=== PATIENT | female | born 1995 | race Caucasian/White ===

== ENCOUNTER 2020-11-01 12:43 | Emergency (ER) | payer SELFPAY ==
[~2020-11-01] VITALS: Ht 152.4 cm; Wt 57.0 kg
[2020-11-01] MEDS ORDERED: MAGNESIUM/ALUMINUM HYDROXIDE/SIMETHICONE 30ML UDC PO STA (13:03)
[2020-11-01] MEDS ORDERED: ONDANSETRON HCL 4MG/2ML INJ IV STA (13:03)
[2020-11-01] MEDS ORDERED: FAMOTIDINE 20MG/2ML VIAL IV ONE (13:15)
[2020-11-01 13:26] LABS: BASOPHILS % 0.4 % (0.0-2.0); EOSINOPHILS % 0.3 % (0.0-5.0); HEMATOCRIT. 37.8 % (36.0-48.0); HEMOGLOBIN. 12.8 g/dL (12.0-16.0); MEAN CORPUSCULAR HEMOGLOBIN 29.7 pg (28.0-32.0); MEAN CORPUSCULAR VOLUME 87.4 fL (81.0-99.0); MEAN PLATELET VOLUME 10.6 fl (7.4-10.4); NEUTROPHILS % 65.3 % (40.0-76.0); PLATELET 215 x1000/uL (130-400); RED BLOOD CELL COUNT 4.32 mill/uL (4.2-5.4); RED CELL DISTRIBUTION WIDTH 15.1 % (11.6-14.6)
[2020-11-01 13:32] LABS: CHLORIDE 109 mEq/L (98-107)
[2020-11-01 13:57] LABS: CLARITY URINE CLEAR (CLEAR); COLOR URINE DARK YELLOW (YELLOW); KETONES URINE TRACE (NEGATIVE); LEUKOCYTE ESTERASE URINE NEGATIVE (NEGATIVE); NITRITE URINE NEGATIVE (NEGATIVE); OCCULT BLOOD URINE NEGATIVE (NEGATIVE); PROTEIN URINE TRACE (NEGATIVE); SPECIFIC GRAVITY URINE 1.035 (1.005-1.030); UROBILINOGEN URINE 0.2 E.U./dL (0.2-1.0)
[2020-11-01] MEDS ORDERED: FAMO20TA8 MT (14:54)
[2020-11-01] MEDS ORDERED: ONDA4TAB5 MT (14:54)
[2020-11-01] MEDS ORDERED: SIME125C MT (14:54)
[2020-11-01 15:54] VITALS: BP 109/70
== END 2020-11-01 16:00 | disposition home or self-care (01) ==
LOC: ER 13:19
DX: R10.9 Unspecified abdominal pain (principal); R11.2 Nausea with vomiting, unspecified; Z88.8 Allergy status to other drugs, medicaments and biological substances; Z98.82 Breast implant status
CPT/HCPCS: 36415; 76705; 80053; 81003; 81025; 83690; 85025; 93005; 96374; 96375; 99285; J2405; J3490

== ENCOUNTER 2021-01-26 22:08 | Emergency (ER) | payer SELFPAY ==
[~2021-01-26] VITALS: Ht 165.1 cm; Wt 61.0 kg
[~2021-01-26 22:08] MED LIST: FAMO20TA8 MT; ONDA4TAB5 MT; SIME125C MT
[2021-01-26 22:13] VITALS: BP 142/73
== END 2021-01-27 00:40 | disposition home or self-care (01) ==
LOC: ER 22:08
DX: R21 Rash and other nonspecific skin eruption (principal); Z98.890 Other specified postprocedural states
CPT/HCPCS: 81025; 99282